=== PATIENT | female | born 1955 | race Caucasian/White ===

== ENCOUNTER → 2017-03-19 | Outpatient (CLI) | payer MEDICARE ==
[~2017-03-19] MED LIST: ALBU8.5H2 IH; ASPI-266 PO; CARV3.12T PO; CARVEDILOL PO; CLON0.5T60 PO; COMPOUND CREAM TOP; COZAAR PO; DICLOFENAC PO; ESOM20SU PO; FISH OIL PO; FLUO10CA19 PO; FOLI1TAB7 PO; INSU100V SQ; INSU100V5 SQ; KLONOPIN PO; LIRA0.6P SQ; LOSA100T16 PO; LOVA40TA2 PO; LOVASTATIN PO; METF-380 PO; METF1000 PO; OMEG-12 PO; SPIRONOLACTONE PO; SPRN25T PO; [UNRECOGNIZED DRUG - OTHER] PO
--- NOTE | 2017-03-19 17:13 | Diagnostic Imaging Report ---
PROCEDURE: MRI left joint lower extremity without contrast. TECHNIQUE: Multiplanar, multisequence non contrast-enhanced MRI of the left lower extremity was accomplished. INDICATION: Left knee pain. FINDINGS: There is [id number] joint effusion. The extensor mechanism demonstrates mild tendinosis at the origin of the patellar tendon with no significant tear. The ACL fibers are not identified compatible with full-thickness tear. This is presumably chronic based on the absence of typical associated bone marrow contusion with acute ACL tears. The PCL is thickened with increased signal compatible with old injury. Some intact fibers appear to be present, however. There is a complex tear involving the posterior horn and body of the medial meniscus. The anterior horn appears intact. The lateral meniscus demonstrates increased signal in its posterior root, compatible with degeneration or nondisplaced tear. The rest of the lateral meniscus appear unremarkable. The lateral collateral ligament components and the MCL appear intact without significant tear. The MCL however is buckled by prominent osteophytes. There is also extrusion of the body of the medial meniscus. There is severe thinning of the cartilage in the medial compartment. The cartilage in the lateral compartment is spared with only minimal fissuring seen. The patellofemoral compartment demonstrates around 75% cartilage thinning. There is subchondral edema seen near the tibial spine and the medial aspect of the medial tibial plateau, probably degenerative. There is no Cedeno's cyst. The muscle bulk and signal around the knee is satisfactory. IMPRESSION: 1. Chronic ACL full-thickness tear. 2. Old partial tear of the PCL. 3. Complex tear of the posterior horn and body of the medial meniscus. 4. Degeneration or nondisplaced tear in the posterior root of the lateral meniscus. 5. Osteoarthritis changes severe in the medial compartment and moderate in the patellofemoral compartments. Dictated by: Dictated on workstation # [id number]
== END ==
LOC: RAD 15:44
PROVIDERS: ATTEND Nurse Practitioner Community Health
DX: S83.512A Sprain of anterior cruciate ligament of left knee, initial encounter (principal); S83.282A Other tear of lateral meniscus, current injury, left knee, initial encounter; M17.12 Unilateral primary osteoarthritis, left knee; X58.XXXA Exposure to other specified factors, initial encounter
CPT/HCPCS: 73721

== ENCOUNTER 2018-05-06 11:36 | Outpatient (CLI) | payer MEDICARE ==
[~2018-05-06] VITALS: Ht 152.4 cm; Wt 103.4 kg
[2018-05-06 11:50] VITALS: BP 163/87
[2018-05-06 12:27] LABS: BASOPHILS % (AUTO) 0 % (0-10); EOSINOPHILS # (AUTO) 0.1 10^3/uL (0.0-0.3); EOSINOPHILS % (AUTO) 2 % (0-10); HEMATOCRIT 35 % (35-52); HEMOGLOBIN 12.1 G/DL (11.5-16.0); LYMPHOCYTES # (AUTO) 3.2 X 10^3 (1.0-4.0); LYMPHOCYTES % (AUTO) 40 % (12-44); MEAN CORPUSCULAR HEMOGLOBIN 30 PG (25-34); MEAN CORPUSCULAR HGB CONC 35 G/DL (32-36); MEAN CORPUSCULAR VOLUME 88 FL (80-99); MEAN PLATELET VOLUME 11.5 FL (7.4-10.4); MONOCYTES # (AUTO) 0.4 X 10^3 (0.0-1.0); MONOCYTES % (AUTO) 5 % (0-12); NEUTROPHILS # (AUTO) 4.3 X 10^3 (1.8-7.8); NEUTROPHILS % (AUTO) 53 % (42-75); PLATELET COUNT 251 10^3/uL (130-400); RED BLOOD COUNT 3.98 10^6/uL (4.35-5.85); RED CELL DISTRIBUTION WIDTH 13.4 % (10.0-14.5); WHITE BLOOD COUNT 8.1 10^3/uL (4.3-11.0)
[2018-05-06 12:41] LABS: INR 1.1 (0.8-1.4)
[2018-05-06 12:44] LABS: ALBUMIN 4.1 GM/DL (3.2-4.5); BILIRUBIN,TOTAL 0.5 MG/DL (0.1-1.0); CALCIUM 9.7 MG/DL (8.5-10.1); CREATININE SERUM 1.03 MG/DL (0.60-1.30); POTASSIUM 4.4 MMOL/L (3.6-5.0); TOTAL PROTEIN 7.6 GM/DL (6.4-8.2)
[2018-05-06 12:46] LABS: BILIRUBIN,URINE NEGATIVE (NEGATIVE); CLARITY,URINE SLIGHTLY CLOUDY; COLOR,URINE AMBER; GLUCOSE, URINE (UA) 3+ (NEGATIVE); KETONES,URINE NEGATIVE (NEGATIVE); LEUKOCYTE ESTERASE ,URINE 3+ (NEGATIVE); NITRITE,URINE POSITIVE (NEGATIVE); PH,URINE 5 (5-9); PROTEIN,URINE 1+ (NEGATIVE); UROBILINOGEN,URINE NORMAL (NORMAL)
[2018-05-06 13:00] LABS: BACTERIA,URINE LARGE /HPF; RENAL EPITHELIAL CELLS,URINE 0-2 /HPF; WBC,URINE 50-100 /HPF
[2018-05-06 13:02] LABS: ERYTHROCYTE SEDIMENTATION RATE 52 MM/HR (0-30)
[2018-05-06] MEDS ORDERED: CARV12.53 PO (14:08)
[2018-05-06] MEDS ORDERED: DICL50TA6 PO (14:08)
[2018-05-06] MEDS ORDERED: SPIR25TA PO (14:08)
[2018-05-06] MEDS ORDERED: FLUO20CA42 PO (14:08)
[2018-05-06] MEDS ORDERED: CLON0.5T13 PO (14:08)
[2018-05-06] MEDS ORDERED: METF10002 PO (14:08)
[2018-05-06] MEDS ORDERED: ROSU20TA31 PO (14:08)
[2018-05-06] MEDS ORDERED: EXEN2VIA SQ (14:08)
[2018-05-06] MEDS ORDERED: RT-ALBUINH IH (14:45)
[2018-05-06] MEDS ORDERED: ESOM20CA58 PO (14:45)
[2018-05-06] MEDS ORDERED: TRAZ-189 PO (14:45)
[2018-05-06] MEDS ORDERED: POTA99TA21 PO (14:45)
[2018-05-06] MEDS ORDERED: OMG1KC PO (14:45)
[2018-05-06] MEDS ORDERED: PREG75CA PO (14:45)
[2018-05-06] MEDS ORDERED: INSU100I23 SQ (14:45)
[2018-05-06] MEDS ORDERED: MULT-35 PO (14:45)
[2018-05-06] MEDS ORDERED: ASPI-983 PO (14:45)
[2018-05-06] MEDS ORDERED: INSU100I29 SQ ×2 (14:45)
--- NOTE | 2018-05-06 16:21 | Diagnostic Imaging Report ---
Indication: Preop left knee surgery PA and lateral chest Heart size and pulmonary vascularity are normal. The lungs are clear. There are no effusions or pneumothoraces. Impression: No acute abnormalities are seen in the chest. Dictated by: Dictated on workstation # [id number]
== END 2018-05-06 12:40 | disposition home or self-care (01) ==
LOC: PREOP 11:36
PROVIDERS: ATTEND Orthopaedic Surgery
DX: Z01.810 Encounter for preprocedural cardiovascular examination (principal); Z01.811 Encounter for preprocedural respiratory examination; Z01.812 Encounter for preprocedural laboratory examination; Z11.2 Encounter for screening for other bacterial diseases; M17.12 Unilateral primary osteoarthritis, left knee; R82.99 Other abnormal findings in urine; R53.83 Other fatigue
CPT/HCPCS: 36415; 71046; 80053; 81000; 85025; 85610; 85652; 86850; 86900; 86901; 87077; 87081; 87088; 87186; 93005

== ENCOUNTER 2018-05-12 07:24 | Inpatient (IN) | payer MEDICARE ==
--- NOTE | 2018-05-03 11:45 | HISTORY AND PHYSICAL ---
DATE OF SERVICE: ADMISSION HISTORY AND PHYSICAL This would be for his date of service 05/12/2018 for inpatient patient admission for left total hip arthroplasty. HISTORY OF PRESENT ILLNESS: The patient is a 63-year-old female with complaints of progressively worsening left knee pain with activity limitations. She reports pain with kneeling and squatting. She has undergone treatment with injections, weight loss and activity modifications without relief. She reports marked functional impairment because of her knee. Radiographs reveal severe medial patellofemoral arthrosis and due to functional impairment and failure to improve with conservative measures, the patient has elected to proceed with surgical intervention. REVIEW OF SYSTEMS: No chest pain, no shortness of breath and no dysuria. PAST MEDICAL HISTORY: Arthritis, depression, diabetes mellitus, hypertension, ulcers, irritable bowel syndrome, insomnia and hyperlipidemia. PAST SURGICAL HISTORY: Tonsillectomy, ulcers and herniorrhaphy. FAMILY HISTORY: Ischemic heart disease and cancer. Her primary care provider is [facility]. MEDICATIONS: Bydureon, spironolactone, Klonopin, carvedilol, insulin, Lyrica, fluoxetine, metformin, aspirin, Nexium, trazodone, rosuvastatin and diclofenac. ALLERGIES: NEURONTIN. SOCIAL HISTORY: The patient denies alcohol and tobacco use. PHYSICAL EXAMINATION: GENERAL: The patient is well developed, well nourished, no acute distress. HEENT: Normocephalic and atraumatic. Pupils are equal, round and reactive to light. Oropharynx is clear. NECK: Supple and no lymphadenopathy. LUNGS: Clear to auscultation bilaterally. HEART: Regular rate and rhythm. ABDOMEN: Soft, nontender and nondistended. EXTREMITIES: Left knee demonstrates no skin lesions. Sensation is intact throughout. MUSCULOSKELETAL: Range of motion 0/2/125. No varus valgus laxity. Negative anterior and posterior drawer. Patella tracks well. She has marked patellofemoral crepitus, pain with patellar loading. She is tender along the medial joint line with pain medially with Massiel. She ambulates with an antalgic gait and needs assistance to arise from a seated position. IMPRESSION: Left knee severe osteoarthritis unresponsive to conservative measures. PLAN: Left total knee arthroplasty. The risks, benefits, options, ramifications and recovery have been discussed at length with the patient. She understands and wishes to proceed. She will require inpatient admission for pain management issues and mobility issues and comorbidities. Job ID: [id number] DocumentID: [id number] Dictated Date: 05/03/2018 11:22:42 Community Outreach Advocate Date: 05/03/2018 11:44:40 Dictated By: JACQUELINE PALACIO MD
[~2018-05-12] VITALS: Ht 152.4 cm; Wt 103.4 kg
[~2018-05-12 07:24] MED LIST changes: +ASPI-983 PO; +CARV12.53 PO; +CLON0.5T13 PO; +DICL50TA6 PO; +ESOM20CA58 PO; +EXEN2VIA SQ; +FLUO20CA42 PO; +INSU100I23 SQ; +INSU100I29 SQ; +METF10002 PO; +MULT-35 PO; +OMG1KC PO; +POTA99TA21 PO; +PREG75CA PO; +ROSU20TA31 PO; +RT-ALBUINH IH; +SPIR25TA PO; +TRAZ-189 PO
[2018-05-12] MEDS ORDERED: CEFUROXIME INJECTION 1,500 MG in NS (IVPB) 50 ML IV ONE (07:45)
[2018-05-12] MEDS: LACTATED RINGERS 1,000 ML IV PRN ×2 (08:00→10:10)
[2018-05-12] MEDS ORDERED: proPOfol 200 MG/20 ML (DIPRIVAN) VIAL IV ONE (08:45)
[2018-05-12] MEDS ORDERED: ONDANSETRON 4 MG/2 ML (SDV) Z0FRAN ONE ×2 (08:45→11:18)
[2018-05-12] MEDS ORDERED: ROPIVACAINE 5MG/ML 30ML VIAL ONE (08:45)
[2018-05-12] MEDS ORDERED: LIDOCAINE PF 2% 5 ML (XYLOCAINE) VIAL ONE ×2 (08:45→09:01)
[2018-05-12] MEDS ORDERED: SEVOFLURANE (ULTANE) 15 ML INHAL SOLN ONE ×6 (08:45→10:54)
[2018-05-12] MEDS ORDERED: MIDAZOLAM 2 MG/2 ML (VERSED) VIAL ONE (08:45)
[2018-05-12] MEDS ORDERED: ROCURONIUM 10 MG/ML 5 ML SYRINGE IV ONE (08:45)
[2018-05-12] MEDS ORDERED: fentaNYL INJECTION 100 MCG/2 ML AMP ONE ×2 (08:46→09:59)
--- NOTE | 2018-05-12 09:24 | Progress Note-Pre Operative ---
Pre-Operative Progress Note H&P Reviewed The H&P was reviewed, patient examined and no changes noted. Date Seen by Provider: May 12, 2018 Time Seen by Provider: : Date H&P Reviewed: May 12, 2018 Time H&P Reviewed: :23 Pre-Operative Diagnosis: left knee primary osteoarthritis JACQUELINE PALACIO MD May 12, 2018 09:23
--- NOTE | 2018-05-12 09:26 | Progress Note-Post Operative ---
Post-Operative Progess Note Surgeon (s)/Mid Level Game Designer (s) Surgeon JACQUELINE PALACIO MD Mid Level Game Designer: Isidro Stanley Pre-Operative Diagnosis left knee primary osteoarthritis Post-Operative Diagnosis left knee primary osteoarthritis Procedure & Operative Findings Date of Procedure 05/12/18 Procedure Performed/Findings left total knee arthroplasty Anesthesia Type GETA plus regional Estimated Blood Loss Estimated blood loss (mL): minimal Specimens/Packing Specimens Removed none Packing: none JACQUELINE PALACIO MD May 12, 2018 09:25
[2018-05-12] MEDS ORDERED: ACETAMINOPHEN 325 MG TABLET PO PRN (09:30)
[2018-05-12] MEDS ORDERED: ONDANSETRON 4 MG/2 ML (SDV) Z0FRAN IVP PRN ×2 (09:30→11:15)
[2018-05-12] MEDS ORDERED: OXYC-197 PO (09:30)
[2018-05-12] MEDS ORDERED: diphenhydrAMINE 50 MG/ML INJ (BENADRYL) IVP PRN (09:30)
--- NOTE | 2018-05-12 09:32 | D/C HH Face to Face Order ---
D/C Face to Face Orders Instructions for Patient Patient Instructions/FollowUp: three weeks Physician to follow Patient: three weeks Discharge Diet for Home: ADA Diet Patient Data-Allergies,Ht & Wt Patient Allergies: Coded Allergies: sulfamethoxazole (Unverified Allergy, Mild, NAUSEA, 05/12/18) N/V AND HALLUCINATIONS trimethoprim (Unverified Allergy, Mild, NAUSEA, 05/12/18) N/V AND HALLUCINATIONS adhesive tape (Verified Allergy, Unknown, HIVES, 05/06/18) gabapentin (Verified Allergy, Unknown, NAUSEA, 05/06/18) Height (Feet): 5 Height (Inches): 0.00 Weight (Pounds): 228 Weight (Ounces): 0.0 Home Health Need/Face to Face Date of Face to Face: May 12, 2018 Clinical Findings: Muscle weakness, Pain with ambulation, Unsteady gait I have seen Pt [id number]: Yes Discharged To: Home Diagnosis/Conditions: left total knee arthroplasty Patient is Homebound due to: Drake fall risk due to instabilty, Muscle weakness , Pain w/ambulation Homebound Status Due to the above stated illness, injury or surgical procedure (medical condition or diagnosis) and associated clinical findings, the patient is homebound because of his/her inability to leave home except with aid of a supportive device and/or person AND leaving the home requires a considerable and taxing effort or is medically contraindicated. Pt req the following assistanc: Walker Home Health Nursing Orders Home Health Services Order: Physical Therapy-Evaluate & Treat Home Health Infusion Therapy Line Start Date: May 12, 2018 Line Start Time: 0800 Line Type: Peripheral IV Site Location: Forearm Therapy Orders Therapy Orders: Physical Therapy, PT to assess for OT Therapy Specific Orders: Eval assistive deivces, Teach strategies/cognitive deficits, Gait training, Increase strength/endurance, Provider maintenance therapy, Restore ROM Certify Stmt I certify that this patient is under my care and that I, a nurse practitioner or a physician; a congressional assistant working with me, had a face to face encounter that - meets the physician face to face encounter requirements with this patient as dated. JACQUELINE PALACIO MD May 12, 2018 09:32
[2018-05-12] MEDS ORDERED: LABETALOL HCL 20 MG/4 ML VIAL ONE ×2 (10:06)
[2018-05-12] MEDS ORDERED: morphine INJ 10 MG/ML 1ML (SYR OR VIAL) ONE (10:58)
[2018-05-12] MEDS: morphine INJ 10 MG/ML 1ML (SYR OR VIAL) IVP PRN ×2 (11:12→11:25)
[2018-05-12] MEDS ORDERED: HYDROmorphone 1 MG/ML (DILAUDID) 1 ML SYRINGE ONE (11:33)
[2018-05-12] MEDS: HYDROmorphone 1 MG/ML (DILAUDID) 1 ML SYRINGE IV PRN ×2 (11:35→11:45)
--- NOTE | 2018-05-12 11:35 | Progress Note-Standard ---
Standard Progress Note Progress Notes/Assess & Plan Date Seen by Provider: May 12, 2018 Time Seen by Provider: 11:34 Progress/Assessment & Plan no complaints LLE--2 plus DP pulse with brisk cap refill. Intact sensation throughout. Intact DF and PF of toes and ankle s/p LTKA mobilize as able JACQUELINE PALACIO MD May 12, 2018 11:35
[2018-05-12 12:57] VITALS: BP 146/65
--- NOTE | 2018-05-12 13:02 | Diagnostic Imaging Report ---
Left knee at 12:04 p.m. INDICATION: Postop. AP and lateral views of the left knee were received from the OR. There are no prior plain film examinations available for comparison. FINDINGS: The MRI left knee exam of 03/19/17 did note severe osteoarthritis involving the medial compartment of the knee joint. There is a total knee prosthesis in place. The prosthetic components appear to be in good position. There is no fracture or acute bony abnormality noted. There is a prominent air-fluid level in the suprapatellar region. Skin jordan are evident overlying the anterior aspect of the knee joint. IMPRESSION: There are postoperative changes consistent with a recent total knee arthroplasty. The prosthetic components appear to be in good position and there is no sign of an acute bony abnormality. Dictated by: Dictated on workstation # [id number]
[2018-05-12] MEDS: NS IV 1000 ML 1,000 ML IV SCH ×2 (13:13→21:56)
[2018-05-12] MEDS: oxyCODONE/APAP 5/325MG (PERCOCET 5) TABLET PO PRN ×2 (13:13→23:59)
[2018-05-12] MEDS: morphine PCA 30 MG/30 ML VIAL IV PRN (13:29)
--- NOTE | 2018-05-12 15:08 | Physical Therapy Evaluation ---
PT Evaluation-General Medical Diagnosis Admission Date May 12, 2018 at 07:24 Medical Diagnosis: left knee OA Onset Date: May 12, 2018 Therapy Diagnosis Therapy Diagnosis: weakness; abn gait Height/Weight Height (Feet): 5 Height (Inches): 0.00 Weight (Pounds): 228 Weight (Ounces): 0.0 Precautions Precautions/Isolations: Fall Prevention, Standard Precautions Weight Bear Status Right Lower Extremity: Right Full Weight Bearing Left Lower Extremity: Left Referral Physician: Jessika Reason for Referral: Evaluation/Treatment Medical History Pertinent Medical History: Arthritis, DM, HTN Additional Medical History depression, IBS Current History Admitted for elective left TKR post failed conservative treatment. Reviewed History: Yes Social History Home: Single Level (trailer home) Current Living Status: Spouse Entry Into Home: Stairs With Railing PT Steps Into Home: 4 PT Steps Inside Home: 0 Prior/Core FIM Prior Level of Function Functional [place] Measure 0=Not Assessed/NA 4=Minimal Assistance 1=Total Assistance 5=Supervision or Setup 2=Maximal Assistance 6=Modified [place] 3=Moderate Assistance 7=Complete [place] Bed Mobility: 7 Transfers (B,C,W/C) (FIM): 7 Gait: 7 Community ambulator and still drives. 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 PT Evaluation-Current Subjective Agreeable to PT. "I want to walk and do the best that I can." Pain Numeric Pain Scale: 4 Location: Left Location Body Site: Knee Pain Description: Ache Comment: post surgery pain Objective Patient Orientation: Person, Place, Time, Situation Problem Solving: Good Attachments: Oxygen (in situ post treatment), IV ROM/Strength ROM Lower Extremities Right LE WNL; left LE WFL; left knee 0-75 degrees AAROM Strength Lower Extremities Right LE WNL; Left LE grossly 4-/5 Integumentary/Posture Integumentary refer to nursing notes. Bowel Incontinence: No Bladder Incontinence: No Posture normal and symmetrical Neuromuscular (Tone, Coordination, Reflexes) no noted functional deficits Sensory Vision: Functional Hearing: Functional Hand Dominance: Right Sensation Right Lower Extremit: Intact Sensation Left Lower Extremity: Intact Transfers Functional [place] Measure 0=Not Assessed/NA 4=Minimal Assistance 1=Total Assistance 5=Supervision or Setup 2=Maximal Assistance 6=Modified [place] 3=Moderate Assistance 7=Complete [place] Transfers (B, C, W/C) (FIM): 4 Scootin Rollin Supine to/from Sit: 4 (assist wth left LE) Sit to/from Stand: 4 (cGA with cues for sequencing) CGA with toilet transfers as well. Gait Mode of Locomotion: Walk Anticipated Mode of Locomotion: Walk Gait (FIM): 2 Distance: 125 ft Gait Level of Assist: 4 (CGA for safety) Gait Assistive Device: FWW Comments/Gait Description step to gait with the right LE; slow and slightly antalgic, decreased stride length. Pt also walked in and out of the bathroom with FWW. Balance Sitting Static: Good Sitting Dynamic: Good Standing Static: Good Standing Dynamic: Fair Treatment Gait training; toileted; applied CPM 0-56 degrees. Assessment/Needs Post elective left TKR. She has decreasd functional transfers and gait as a result of knee surgery with limited ROM and functional strength. She will benefit from skilled PT to work on mobility to allow her to return home. Rehab Potential: Good PT Retirement Goals Maritime Engineer Goals PT Retirement Goals Time Frame: May 17, 2018 Transfers (B,C,W/C) (FIM): 6 Gait (FIM): 6 Gait distance (FIM): 3=150 ft Gait Assistive Device: FWW Stairs (FIM): 5 # of Steps: 4 PT Plan Problem List Problem List: Activity Tolerance, Functional Strength, Safety, Balance, Gait, Transfer, Bed Mobility Treatment/Plan Treatment Plan: Continue Plan of Care Treatment Plan: Bed Mobility, Education, Functional Activity Clark, Functional Strength, Gait, Safety, Therapeutic Exercise, Transfers Treatment Duration: May 17, 2018 Frequency: 11 times per week Estimated Hrs Per Day: .5 hour per day Patient and/or Family Agrees t: Yes Safety Risks/Education Patient Education: Gait Training, Transfer Techniques, Safety Issues Teaching Recipient: Patient Teaching Methods: Demonstration, Discussion Response to Teaching: Reinforcement Needed Time/GCodes Time In: 1345 Time Out: 1420 Total Billed Treatment Time: 35 Total Billed Treatment visit EVM 20 GT 15 CPM, pads BRANDON ROCHA PT May 12, 2018 15:08
--- NOTE | 2018-05-12 15:50 | OPERATIVE REPORT ---
DATE OF SERVICE: 05/12/2018 PREOPERATIVE DIAGNOSIS: Left knee primary osteoarthritis. POSTOPERATIVE DIAGNOSIS: Left knee primary osteoarthritis. PROCEDURE: Left total knee arthroplasty. SURGEON: Raul Palacio MD LIFE SKILLS COORDINATOR: MAIKOL Valentino, who assisted throughout the procedure and closed the incision. ANESTHESIA: General endotracheal plus regional nerve block by Brandi Ugarte CRNA. TOURNIQUET TIME: Approximately 60 minutes at 300 mmHg. ESTIMATED BLOOD LOSS: Minimal. DRAINS: None. COMPLICATIONS: None. POSTOPERATIVE PLAN: Routine protocol. The patient was transported to the recovery room awake and in stable condition. MATERIALS: MicroPort cemented size 3 femur, cemented size 3 tibia with 10 mm insert and a cemented size 32 patellar button. STATEMENT OF MEDICAL NECESSITY: The patient is a 63-year-old female with longstanding progressive left knee pain. Radiographs revealed severe medial and patellofemoral osteoarthritis. She had undergone treatment with injections, anti-inflammatories and rest without relief and due to functional impairment and failure to improve with conservative measures, the patient elected to proceed with surgical intervention. DESCRIPTION OF PROCEDURE: After risks and benefits of procedure were discussed and questions were answered and informed consent was signed and placed on the chart. The operative site was confirmed in the preoperative holding area initialed by the surgeon. The patient was then transported to the operating room and after adequate levels of general endotracheal anesthetic were obtained, a timeout was called confirming the operative site. The left lower extremity was prepped and draped in the usual sterile fashion with the leg elevated and the knee flexed. The tourniquet was inflated to 300 mmHg. Standard anterior approach was utilized. Hemostasis was obtained with cautery. A medial parapatellar arthrotomy was performed leaving 1 cm cuff on the patella for later reattachment. A portion of the fat pad was resected. A subperiosteal release was performed on the proximal medial tibia with curved osteotome being careful to stay on the bony surface. The ACL was resected. The intramedullary guide was passed into the femur and the distal cutting block was placed. The distal cut was made. The femur sized to a size 3. The 3 cutting block was placed parallel to the epicondylar axis and cuts were made from posterior to anterior. The trochlear guide was placed and the trochlear cut was made. A subperiosteal release was then carefully performed on the posterior distal femur, being careful to stay on the bony surface. The intramedullary guide was then passed into the tibia. The drop maureen transected the intermalleolar axis and the cut was made. The size 3 baseplate was positioned and felt to be in excellent position with the drop maureen transecting the intermalleolar axis. This was prepared with a drill and keel punch. The patella was then prepared by resecting 10 mm off the undersurface using the freehand technique. The peg guide was placed and the peg holes were drilled. The trials were inserted with a 10 mm insert. Full extension was easily obtained, 120 degrees of flexion with gravity was easily obtained. The patella tracked well. There was no anterior/posterior or medial/lateral laxity in flexion or extension. The trials were removed. The joint was irrigated with pulse lavage. Bone ends were irrigated and dried. The tibial baseplate was cemented into position and excess of cement was removed. The superior surface was irrigated and dried and the polyethylene insert was placed. The distal femur was irrigated and dried and the femoral prosthesis was cemented into position and excess cement was removed. The knee was brought out in full extension until cement had cured. The undersurface of patella was irrigated and dried. The patellar button was cemented into position removing excess of cement. Once the cement had cured, the knee was taken through full range of motion with full extension was easily obtained and 120 degrees of flexion with gravity was easily obtained. There was no anterior/posterior or medial/lateral laxity in flexion or extension and the patella tracked well. The joint was further irrigated with pulse lavage. The arthrotomy was closed with #2 Tevdek in [id number] interrupted fashion. The knee was flexed. The patella tracked well and was found to be stable. Subcutaneous tissues were irrigated and dried and closed with 0 Vicryl in the deep layer, 2-0 Vicryl in superficial subcutaneous layers, jordan used on the skin. A soft dressing was applied. The tourniquet was deflated and the patient was transported to the recovery room awake and in stable condition. Job ID: [id number] DocumentID: [id number] Dictated Date: 05/12/2018 11:08:28 Miniature Set Designer Date: 05/12/2018 15:49:34 Dictated By: RAUL PALACIO MD
[2018-05-12 16:00] VITALS: BP 108/69
[2018-05-12] MEDS: CEFUROXIME INJECTION 750 MG in NS (IVPB) 50 ML IV SCH (16:22)
[2018-05-12 19:38] VITALS: BP 160/78
[2018-05-12] MEDS: SENNA W/DOCUSATE (SENOKOT S) TABLET PO SCH (20:41)
[2018-05-12] MEDS: ENOXAPARIN 30 MG/0.3 ML (LOVENOX) SYR SC SCH (21:14)
[2018-05-12] MEDS: inSUlin ASPART (NovoLOG) 1 UNIT/0.01 ML (CHARGE PER UNIT) SC SCH (21:47)
[2018-05-13] VITALS: BP 133/61
[2018-05-13] MEDS: NS IV 1000 ML 1,000 ML IV SCH ×2 (00:54→13:49)
[2018-05-13] MEDS: CEFUROXIME INJECTION 750 MG in NS (IVPB) 50 ML IV SCH (00:54)
[2018-05-13] MEDS: oxyCODONE/APAP 5/325MG (PERCOCET 5) TABLET PO PRN ×8 (04:05→21:16)
[2018-05-13 04:13] VITALS: BP 138/64
[2018-05-13 06:29] LABS: HEMOGLOBIN 9.9 G/DL (11.5-16.0)
[2018-05-13] MEDS: inSUlin ASPART (NovoLOG) 1 UNIT/0.01 ML (CHARGE PER UNIT) SC SCH ×4 (06:34→21:17)
[2018-05-13] MEDS: MULTIVIT W/MINERALS TAB (THERAGRAN M) PO SCH (06:34)
--- NOTE | 2018-05-13 07:20 | Anesthesia-General Post-Op ---
General Patient Condition Mental Status/LOC: Same as Preop Cardiovascular: Satisfactory Nausea/Vomiting: Absent Respiratory: Satisfactory Pain: Controlled Complications: Absent Post Op Complications Complications None Follow Up Care/Instructions Patient Instructions None needed. Anesthesia/Patient Condition Patient Condition Patient is doing well, no complaints, stable vital signs, no apparent adverse anesthesia problems. No complications reported per nursing. D/C home per [facility] [place] Criteria: No MONICA SANTILLAN CRNA May 13, 2018 07:20
[2018-05-13 07:48] VITALS: BP 163/77
--- NOTE | 2018-05-13 07:57 | Progress Note-Standard ---
Standard Progress Note Progress Notes/Assess & Plan Date Seen by Provider: May 13, 2018 Time Seen by Provider: 07:55 Progress/Assessment & Plan no complaints LLE--2 plus DP pulse with brisk cap refill. Intact sensation throughout. Intact DF and PF of toes and ankle s/p LTKA mobilize as able Final Diagnosis NO complaints radiographs--HW well positioned without fracture Vital Signs Date Time Temp Pulse Resp B/P (MAP) Pulse Ox O2 Delivery O2 Flow Rate FiO2 05/13/18 07:48 96.9 82 18 163/77 (105) 93 Room Air 05/13/18 06:00 20 05/13/18 04:13 98.3 80 19 138/64 (88) 93 Nasal Cannula 3.00 05/13/18 00:00 98.0 76 18 133/61 (85) 94 Nasal Cannula 3.00 05/12/18 23:50 Nasal Cannula 3.00 05/12/18 20:45 Room Air 05/12/18 19:38 97.5 71 20 160/78 (105) 100 Nasal Cannula 3.00 05/12/18 17:19 20 05/12/18 16:00 97.2 66 20 108/69 (82) 98 Nasal Cannula 3.00 05/12/18 14:34 Room Air 05/12/18 13:29 18 05/12/18 12:57 96.8 73 18 146/65 (92) 94 Nasal Cannula 3.00 05/12/18 12:20 98 Nasal Cannula 3.00 I & O 05/13/18 07:00 Intake Total 4230 ml Output Total 1150 ml Balance 3080 ml Laboratory Tests Test 05/12/18 15:51 05/12/18 21:13 05/13/18 05:11 05/13/18 06:05 Range/Units Glucometer 224 H 181 H 218 H 70-110 MG/DL Hemoglobin 9.9 L 11.5-16.0 G/DL Hematocrit 30 L 35-52 % LLE--NVI distally. Dressing intact. Neg Anita's s/p LTKA PT/OT JACQUELINE PALACIO MD May 13, 2018 07:57
[2018-05-13] MEDS: SENNA W/DOCUSATE (SENOKOT S) TABLET PO SCH ×2 (08:39→20:22)
[2018-05-13] MEDS: ASPIRIN E.C. 81 MG (ECOTRIN) TAB PO SCH (08:40)
--- NOTE | 2018-05-13 09:27 | Occupational Therapy Eval ---
OT Evaluation-General/PLF Medical Diagnosis Admission Date May 12, 2018 at 07:24 Medical Diagnosis: left knee OA Onset Date: May 12, 2018 Therapy Diagnosis Therapy Diagnosis: decr self care, decr funct mobility Height/Weight Height (Feet): 5 Height (Inches): 0.00 Weight (Pounds): 228 Weight (Ounces): 0.0 Precautions Precautions/Isolations: Standard Precautions Referral Physician: Jessika Referral Reason: Evaluation/Treatment Medical History Pertinent Medical History: Arthritis, DM, HTN, Neuropathy (patient report, in hands and feet) Additional Medical History Ulcers. Irritable bowel. Insomnia Current History Elective L total knee replacement Reviewed History: Yes Social History Home: Single Level (trailer home) Current Living Status: Spouse Entry Into Home: Stairs With Railing Steps Into Home: 4 Steps Inside Home: 0 ADL-Prior Level of Function ADL PLOF Comments Pt reported that she was previously able to manage her basic self care needs and did not use any AD. 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 She still drives and loves to work with her smith outside. DME/Equipment: Grab Bars, Shower, Tall Toilet, Tub/Shower OT Current Status Subjective Pt seen in room, up in bed, agreeable to OT. Pain rated 6/10 in L knee but not described. Recent pain meds Appearance Alert, cooperative Mental Status/Objective Patient Orientation: Person, Place, Time, Situation Attachments: IV, Polar Pack Current Glasses/Contacts: Yes Hearing Aids: No Dentures/Partials: No Hand Dominance: Right Upper Extremity ROM Grossly WFL bilat Upper Extremity Sensation Pt reported numbness in fiinger tips from neuropathy Upper Extremity Strength Grossly 4+/5 bilat ADL-Treatment ADL-Current Pt educ on modified techniques for dressing and toileting. She needed CGA yesterday for transfers and walked 125" with CGA, FWW, with PT. She reported no problems getting on and off tall toilet in her room. Functional [place] Measure 0=Not Assessed/NA 4=Minimal Assistance 1=Total Assistance 5=Supervision or Setup 2=Maximal Assistance 6=Modified [place] 3=Moderate Assistance 7=Complete IndependenceIRFPAI Quality Coding Scale 6 Independent with activity with or without an assistive device 5 Patient requires set up or clean up by helper. Patient completes activity by themselves 4 Supervision or touching assist (CGA). [place] provide cues , steadying assist 3 The helper provides less than half the effort to complete the activity 2 The helper provides more than half the effort to complete the activity 1 Dependent. The helper does all the effort to complete an activity 7 Patient refused to complete or attempt activity 9 The patient did not perform the activity before the current illness or injury 88 Not attempted due to Medical conditions or safety concerns Education OT Patient Education: Modified ADL techniques, Purpose of tx/functional activities, Rehab process Teaching Recipient: Patient, Family Teaching Methods: Discussion Response to Teaching: Verbalize Understanding OT Fci Goals Fci Goals Time Frame: May 17, 2018 Eating (FIM): 7 Grooming(FIM): 6 Bathing(FIM): 6 Upper Body Dressing(FIM): 5 Lower Body Dressing(FIM): 5 Toileting(FIM): 6 Toilet/Commode Transfer(FIM): 6 Shower Transfer(FIM): 5 Additional Goals: 1-Demonstrate ADL Tasks, 2-Verbalize Understanding 1=Demonstrate adherence to instructed precautions during ADL tasks. 2=Patient will verbalize/demonstrate understanding of assistive devices/ modifications for ADL. 3=Patient will improve strength/tolerance for activity to enable patient to perform ADL's. OT Education/Plan Problem List/Assessment Assessment: Dependent Transfers, Impaired Self-Care Skills Pt would benefit from skilled OT to increase her independence in basic self care to allow her to safely return to her home. Discharge Recommendations Plan/Recommendations: Continue POC Therapy D/C Recommendations: Home w/ Family Support Target Placement home Treatment Plan/Plan of Care Treatment,Training & Education: Yes Patient would benefit from OT for education, treatment and training to promote independence in ADL's, mobility, safety and/or upper extremity function for ADL' s. Plan of Care: ADL Retraining, Functional Mobility Treatment Duration: May 17, 2018 Frequency: 5 times per week Estimated Hrs Per Day: .5 hour per day Agreement: Yes Rehab Potential: Good Time/GCodes Start Time: 08:55 Stop Time: 09:08 Total Time Billed (hr/min): 13 Billed Treatment Time visit, 13 minutes evaluation low intensity ROSE ANNE OT May 13, 2018 09:27
--- NOTE | 2018-05-13 09:31 | Physical Therapy Daily Note ---
PT Daily Note-Current Subjective Patient agrees to PT. 08/04 left knee pain with meds issued. Pain Numeric Pain Scale: 10-Worst Possible Pain Location: Left Location Body Site: Knee Pain Description: Acute Mental Status Patient Orientation: Normal For Age Attachments: IV Transfers Functional [place] Measure 0=Not Assessed/NA 4=Minimal Assistance 1=Total Assistance 5=Supervision or Setup 2=Maximal Assistance 6=Modified [place] 3=Moderate Assistance 7=Complete IndependenceIRFPAI Quality Coding Scale 6 Independent with activity with or without an assistive device 5 Patient requires set up or clean up by helper. Patient completes activity by themselves 4 Supervision or touching assist (CGA). [place] provide cues , steadying assist 3 The helper provides less than half the effort to complete the activity 2 The helper provides more than half the effort to complete the activity 1 Dependent. The helper does all the effort to complete an activity 7 Patient refused to complete or attempt activity 9 The patient did not perform the activity before the current illness or injury 88 Not attempted due to Medical conditions or safety concerns Transfers (B, C, W/C) (FIM): 5 Scootin Rollin Supine to/from Sit: 5 Sit to/from Stand: 5 Weight Bearing Right Lower Extremity: Right Full Weight Bearing Left Lower Extremity: Left Gait Training Gait (FIM): 5 Distance (FIM): 3=150 ft Distance: 225' Gait Level of Assist: 5 Gait Assistive Device: FWW steady, antalgic Exercises Supine Ex: Ankle pumps, Quad Set, Heel Slides, Straight leg raise Supine Reps: 15 Seated Therapy Exercises: Ankle pumps, Long arc quads Seated Reps: 15 Assessment Patient tolerated treatment well and is progressing with treatment plan. Patient is highly motivated with progress. PT Group Home Goals Manager Budget Goals PT Manager Budget Goals Time Frame: May 17, 2018 Transfers (B,C,W/C) (FIM): 6 Gait (FIM): 6 Gait distance (FIM): 3=150 ft Gait Assistive Device: FWW Stairs (FIM): 5 # of Steps: 4 PT Plan Treatment/Plan Treatment Plan: Continue Plan of Care Treatment Plan: Bed Mobility, Education, Functional Activity [place], Functional Strength, Gait, Safety, Therapeutic Exercise, Transfers Treatment Duration: May 17, 2018 Frequency: 11 times per week Estimated Hrs Per Day: .5 hour per day Patient and/or Family Agrees t: Yes Time/GCodes Time In: 831 Time Out: 854 Total Billed Treatment Time: 23 Total Billed Treatment 1 visit EX 14 min GT 9 min TRINO ALFARO PT May 13, 2018 09:31
[2018-05-13 12:33] VITALS: BP 155/70
[2018-05-13] MEDS ORDERED: RT-ALBUTEROL SULF 2.5 MG/3 ML PRE-MIX VIAL IH PRN (13:15)
--- NOTE | 2018-05-13 14:33 | Physical Therapy Daily Note ---
PT Daily Note-Current Subjective Patient continues to c/o 10/ left knee pain. Pain Numeric Pain Scale: 10-Worst Possible Pain Location: Left Location Body Site: Knee Pain Description: Acute Mental Status Patient Orientation: Normal For Age Attachments: IV Transfers Functional [place] Measure 0=Not Assessed/NA 4=Minimal Assistance 1=Total Assistance 5=Supervision or Setup 2=Maximal Assistance 6=Modified [place] 3=Moderate Assistance 7=Complete IndependenceIRFPAI Quality Coding Scale 6 Independent with activity with or without an assistive device 5 Patient requires set up or clean up by helper. Patient completes activity by themselves 4 Supervision or touching assist (CGA). [place] provide cues , steadying assist 3 The helper provides less than half the effort to complete the activity 2 The helper provides more than half the effort to complete the activity 1 Dependent. The helper does all the effort to complete an activity 7 Patient refused to complete or attempt activity 9 The patient did not perform the activity before the current illness or injury 88 Not attempted due to Medical conditions or safety concerns Transfers (B, C, W/C) (FIM): 5 Scootin Rollin Supine to/from Sit: 5 Sit to/from Stand: 5 Weight Bearing Right Lower Extremity: Right Full Weight Bearing Left Lower Extremity: Left Gait Training Gait (FIM): 5 Distance (FIM): 3=150 ft Distance: 250' Gait Level of Assist: 5 Gait Assistive Device: FWW steady, antalgic Exercises Supine Ex: Ankle pumps, Quad Set, Heel Slides, Straight leg raise Supine Reps: 15 Seated Therapy Exercises: Long arc quads Seated Reps: 15 Treatments CPM 0-70 degrees with polar pack in place Assessment Patient progressing with treatment plan and is motivated with progress. PT to continue to increase activity as tolerated by patient. 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 Field Inspector Goals Mortgage Field Inspector Goals PT Care Home Goals Time Frame: May 17, 2018 Transfers (B,C,W/C) (FIM): 6 Gait (FIM): 6 Gait distance (FIM): 3=150 ft Gait Assistive Device: FWW Stairs (FIM): 5 # of Steps: 4 PT Plan Treatment/Plan Treatment Plan: Continue Plan of Care Treatment Plan: Bed Mobility, Education, Functional Activity Calrk, Functional Strength, Gait, Safety, Therapeutic Exercise, Transfers Treatment Duration: May 17, 2018 Frequency: 11 times per week Estimated Hrs Per Day: .5 hour per day Patient and/or Family Agrees t: Yes Time/GCodes Time In: 1346 Time Out: 1410 Total Billed Treatment Time: 24 Total Billed Treatment 1 visit EX 13 min GT 11 min TRINO ALFARO PT May 13, 2018 14:33
[2018-05-13 16:18] VITALS: BP 148/67
--- NOTE | 2018-05-13 17:58 | Consultation ([facility]S) ---
HPI History of Present Illness: Patient here POD #1 s/p Total Left knee. History of IDDM, HTN, HLD. Reviewed home meds with patient. States that she is having pain and the TILE DITCHER is controlling most of her pain. She has been up with PTCamille LEW this AM. Tolerating PO diet Exam Limitations: no limitations Date seen by provider: May 13, 2018 Time Seen by Provider: 11:10 Attending Physician Raul Rosen MD PCP Flynn Chery MD Consult Date of Admission May 12, 2018 at 07:24 Home Medications Home Medications Reviewed patient Home Medication Reconciliation performed by pharmacy medication reconciliations train electronic technician and/or nursing. Patients Allergies have been reviewed. Allergies Coded Allergies: sulfamethoxazole (Unverified Allergy, Mild, NAUSEA, 05/12/18) N/V AND HALLUCINATIONS trimethoprim (Unverified Allergy, Mild, NAUSEA, 05/12/18) N/V AND HALLUCINATIONS adhesive tape (Verified Allergy, Unknown, HIVES, 05/06/18) gabapentin (Verified Allergy, Unknown, NAUSEA, 05/06/18) AGH-Rerehg-[id number] Hx Patient Social History Living Status: Lives home with Alcohol Use: Denies Use Recreational Drug Use: No Smoking Status: Never a Smoker Recent Foreign Travel: No Contact w/other who traveled: No Recent Hopitalizations: No Physical Abuse Screen: No Sexual Abuse: No Immunizations Up To Date Date of Pneumonia Vaccine: Jan 05, 2016 Date of Influenza Vaccine: Jun 26, 2014 Past Medical History IDDM HTN HLD 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 Family Medical History Family History: Cardiovascular disease 19 FATHER, FH: prostate cancer G8 BROTHER Respiratory disorder G8 BROTHER Review of Systems ([facility]) Constitutional: No chills, No dizziness, No fever; weakness EENTM: no symptoms reported Respiratory: no symptoms reported; No cough, No dyspnea on exertion, No short of breath Cardiovascular: no symptoms reported; No chest pain, No edema, No palpitations Gastrointestinal: no symptoms reported; No abdominal pain, No constipation, No diarrhea, No nausea, No vomiting Genitourinary: no symptoms reported; No dysuria, No frequency, No hematuria : No Musculoskeletal: joint pain (Left total knee) Skin: no symptoms reported; No lesions, No rash Psychiatric/Neurological: No Symptoms Reported; Denies Anxiety, Denies Depressed, Denies Headache, Denies Numbness Reviewed Test Results Reviewed Test Results Lab Laboratory Tests Test 05/12/18 21:13 05/13/18 05:11 05/13/18 06:05 05/13/18 10:51 Range/Units Glucometer 181 H 218 H 287 H 70-110 MG/DL Hemoglobin 9.9 L 11.5-16.0 G/DL Hematocrit 30 L 35-52 % Test 05/13/18 16:22 Range/Units Glucometer 275 H 70-110 MG/DL Physical Exam-([facility]) Physical Exam Vital Signs VS - Last 72 Hours, by Label 05/12/18 05/12/18 05/12/18 05/12/18 12:20 12:57 13:29 14:34 Temp 96.8 Pulse 73 Resp 18 18 B/P (MAP) 146/65 (92) Pulse Ox 98 94 O2 Delivery Nasal Cannula Nasal Cannula Room Air O2 Flow Rate 3.00 3.00 05/12/18 05/12/18 05/12/18 05/12/18 16:00 17:19 19:38 20:45 Temp 97.2 97.5 Pulse 66 71 Resp 20 20 20 B/P (MAP) 108/69 (82) 160/78 (105) Pulse Ox 98 100 O2 Delivery Nasal Cannula Nasal Cannula Room Air O2 Flow Rate 3.00 3.00 05/12/18 05/13/18 05/13/18 05/13/18 23:50 00:00 04:13 06:00 Temp 98.0 98.3 Pulse 76 80 Resp 18 19 20 B/P (MAP) 133/61 (85) 138/64 (88) Pulse Ox 94 93 O2 Delivery Nasal Cannula Nasal Cannula Nasal Cannula O2 Flow Rate 3.00 3.00 3.00 05/13/18 05/13/18 05/13/18 05/13/18 07:48 08:00 12:33 16:18 Temp 96.9 96.3 96.6 Pulse 82 80 80 Resp 18 18 18 B/P (MAP) 163/77 (105) 155/70 (98) 148/67 (94) Pulse Ox 93 91 96 O2 Delivery Room Air Room Air Room Air Room Air Capillary Refill : Less Than 3 Seconds General Appearance: WD/WN, no apparent distress HEENT: PERRL/EOMI Neck: non-tender, full range of motion, normal inspection Respiratory: chest non-tender, lungs clear, normal breath sounds, no respiratory distress, no accessory muscle use Cardiovascular: normal peripheral pulses, regular rate, rhythm, no edema, no murmur Gastrointestinal: normal bowel sounds, non tender, soft, no organomegaly Back: no CVA tenderness, no vertebral tenderness Extremities: normal range of motion, non-tender, normal inspection, no pedal edema, no calf tenderness, normal capillary refill Neurologic/Psychiatric: audiometric technician II-XII nml as tested, no motor/sensory deficits, alert, normal mood/affect, oriented x 3 Skin: normal color, warm/dry Lymphatic: no adenopathy Assessment/Plan Assessment/Plan Admission Status: Inpatient Order (span 2 midnights) Reason for Inpatient Admission: s/p surgery (1) Osteoarthritis of left knee Status: Chronic Assessment & Plan: POD #1 s/p Left total knee with Dr Carroll - Pain control per surgical team, Plan for home on Thursday with Qualifiers: Qualified Codes: M17.12 - Unilateral primary osteoarthritis, left knee (2) Insulin dependent diabetes mellitus Status: Chronic Assessment & Plan: - Will restart 60% of insulin, SSI with accuchecks QID, A1c pending (3) HTN (hypertension) Status: Chronic Assessment & Plan: - Restart home meds Qualifiers: Qualified Codes: I10 - Essential (primary) hypertension (4) HLD (hyperlipidemia) Status: Chronic Assessment & Plan: - Restart home statin Qualifiers: Qualified Codes: E78.2 - Mixed hyperlipidemia Clinical Quality Measures DVT/VTE Risk/Contraindication: Risk Factor Score Per Nursin RFS Level Per Nursing on Admit: 4+=Very High Copy Copies To 1: Nidia MOREL HOLLY R MD May 13, 2018 17:58
[2018-05-13 19:34] VITALS: BP 144/69
[2018-05-13] MEDS: SPIRONOLACTONE 25 MG (ALDACTONE) TAB PO SCH (20:21)
[2018-05-13] MEDS: ROSUVASTATIN 20 MG (CRESTOR) TABLET PO SCH (20:21)
[2018-05-13] MEDS: ENOXAPARIN 30 MG/0.3 ML (LOVENOX) SYR SC SCH (20:21)
[2018-05-13] MEDS: CARVEDILOL 12.5 MG (COREG) TABLET PO SCH (20:21)
[2018-05-13] MEDS ORDERED: inSUlin DETERMIR 1 UNIT/0.01 ML (LEVEMIR) CHARGE PER UNIT SQ SCH (21:00)
[2018-05-14] MEDS: morphine PCA 30 MG/30 ML VIAL IV PRN (00:04)
[2018-05-14 00:57] VITALS: BP 135/63
[2018-05-14] MEDS: NS IV 1000 ML 1,000 ML IV SCH (02:18)
[2018-05-14] MEDS: oxyCODONE/APAP 5/325MG (PERCOCET 5) TABLET PO PRN ×7 (02:20→23:57)
[2018-05-14 04:13] VITALS: BP 127/60
[2018-05-14] MEDS: inSUlin ASPART (NovoLOG) 1 UNIT/0.01 ML (CHARGE PER UNIT) SC SCH ×4 (06:16→22:58)
[2018-05-14] MEDS: MULTIVIT W/MINERALS TAB (THERAGRAN M) PO SCH (06:16)
[2018-05-14] MEDS: PANTOPRAZOLE 20 MG TABLET (PROTONIX) PO SCH (06:16)
[2018-05-14 06:45] LABS: HEMOGLOBIN 9.8 G/DL (11.5-16.0)
--- NOTE | 2018-05-14 07:06 | Progress Note-Standard ---
Standard Progress Note Progress Notes/Assess & Plan Date Seen by Provider: May 14, 2018 Time Seen by Provider: 07:05 Progress/Assessment & Plan no complaints LLE--2 plus DP pulse with brisk cap refill. Intact sensation throughout. Intact DF and PF of toes and ankle s/p LTKA mobilize as able Final Diagnosis NO complaints Vital Signs Date Time Temp Pulse Resp B/P (MAP) Pulse Ox O2 Delivery O2 Flow Rate FiO2 05/14/18 06:00 18 05/14/18 04:13 97.5 83 19 127/60 (82) 94 Room Air 05/14/18 00:57 98.2 76 19 135/63 (87) 95 Room Air 05/14/18 00:04 18 05/13/18 20:20 Room Air 05/13/18 19:34 99.0 79 18 144/69 (94) 92 Room Air 05/13/18 18:51 96 Room Air 05/13/18 18:00 18 05/13/18 16:18 96.6 80 18 148/67 (94) 96 Room Air 05/13/18 12:33 96.3 80 18 155/70 (98) 91 Room Air 05/13/18 08:00 Room Air 05/13/18 07:48 96.9 82 18 163/77 (105) 93 Room Air I & O 05/14/18 07:00 Intake Total 4220 ml Output Total 1050 ml Balance 3170 ml Laboratory Tests Test 05/13/18 10:51 05/13/18 16:22 05/13/18 20:53 05/14/18 05:31 Range/Units Glucometer 287 H 275 H 291 H 251 H 70-110 MG/DL Test 05/14/18 06:01 Range/Units Hemoglobin 9.8 L 11.5-16.0 G/DL Hematocrit 29 L 35-52 % LLE--incision clean and dry. No calf tenderness. Neg Shea's s/p LTKA progressing well continue PT/OT DC LIMOUSINE RENTAL CLERK likely DC tomorrow JACQUELINE PALACIO MD May 14, 2018 07:06
[2018-05-14 07:09] LABS: ALANINE AMINOTRANSFERASE 36 U/L (0-55); ALBUMIN 3.7 GM/DL (3.2-4.5); ALKALINE PHOSPHATASE 106 U/L (40-136); BUN/CREATININE RATIO 15; CALCIUM 8.8 MG/DL (8.5-10.1); CARBON DIOXIDE 24 MMOL/L (21-32); CHLORIDE 99 MMOL/L (98-107); CREATININE SERUM 0.78 MG/DL (0.60-1.30); GFR ESTIMATED > 60; GLUCOSE 242 MG/DL (70-105); POTASSIUM 4.1 MMOL/L (3.6-5.0); SODIUM 131 MMOL/L (135-145); TOTAL PROTEIN 7.1 GM/DL (6.4-8.2)
[2018-05-14] MEDS ORDERED: morphine INJ 4 MG/ML 1 ML (VIAL/SYRINGE) IVP PRN (07:15)
[2018-05-14 08:00] VITALS: BP 133/64
--- NOTE | 2018-05-14 09:07 | Occ Therapy Progress Note ---
Therapy Progress Note 900 Attempted to see patient but she said that she was on the CPM and requested OT to come back later. ROSE ANNE OT May 14, 2018 09:07
[2018-05-14] MEDS: CARVEDILOL 12.5 MG (COREG) TABLET PO SCH ×2 (09:19→23:03)
[2018-05-14] MEDS: SENNA W/DOCUSATE (SENOKOT S) TABLET PO SCH ×2 (09:20→22:59)
[2018-05-14] MEDS: ENOXAPARIN 30 MG/0.3 ML (LOVENOX) SYR SC SCH ×2 (09:20→22:58)
[2018-05-14] MEDS: ASPIRIN E.C. 81 MG (ECOTRIN) TAB PO SCH (09:20)
[2018-05-14] MEDS: SPIRONOLACTONE 25 MG (ALDACTONE) TAB PO SCH ×2 (09:20→22:59)
[2018-05-14] MEDS: FLUoxetine HCL 20 MG (PROzac) CAP PO SCH (09:26)
--- NOTE | 2018-05-14 09:32 | Physical Therapy Daily Note ---
PT Daily Note-Current Subjective Patient agrees to PT. Pain Numeric Pain Scale: 8 Location: Left Location Body Site: Knee Pain Description: Acute Mental Status Patient Orientation: Normal For Age Transfers Functional [place] Measure 0=Not Assessed/NA 4=Minimal Assistance 1=Total Assistance 5=Supervision or Setup 2=Maximal Assistance 6=Modified [place] 3=Moderate Assistance 7=Complete IndependenceIRFPAI Quality Coding Scale 6 Independent with activity with or without an assistive device 5 Patient requires set up or clean up by helper. Patient completes activity by themselves 4 Supervision or touching assist (CGA). [place] provide cues , steadying assist 3 The helper provides less than half the effort to complete the activity 2 The helper provides more than half the effort to complete the activity 1 Dependent. The helper does all the effort to complete an activity 7 Patient refused to complete or attempt activity 9 The patient did not perform the activity before the current illness or injury 88 Not attempted due to Medical conditions or safety concerns Transfers (B, C, W/C) (FIM): 6 Scootin Rollin Supine to/from Sit: 6 Sit to/from Stand: 6 Weight Bearing Right Lower Extremity: Right Full Weight Bearing Left Lower Extremity: Left Gait Training Gait (FIM): 6 Distance (FIM): 3=150 ft Distance: 250' x 2 Gait Level of Assist: 6 Gait Assistive Device: FWW slow, antalgic, functional (skilled verbal instruction for heel toe gait with knee flexion ) Stair Training Stair Training: Handrails/: 2 handrails Stairs (FIM): 2 #of Steps: 4 Stairs: Pattern: Step to Level of Assist: 5 Exercises Supine Ex: Ankle pumps, Quad Set, Heel Slides, Straight leg raise Supine Reps: 15 Seated Therapy Exercises: Long arc quads Seated Reps: 25 Treatments CPM 0-80 degrees with polar pack in place. Assessment Patient progressing with treatment plan and will dismiss to home tomorrow with spouse. PT Usp Goals Usp Goals PT Mechanical Cad Designer Goals Time Frame: May 17, 2018 Transfers (B,C,W/C) (FIM): 6 Gait (FIM): 6 Gait distance (FIM): 3=150 ft Gait Assistive Device: FWW Stairs (FIM): 5 # of Steps: 4 PT Plan Treatment/Plan Treatment Plan: Continue Plan of Care Treatment Plan: Bed Mobility, Education, Functional Activity [place], Functional Strength, Gait, Safety, Therapeutic Exercise, Transfers Treatment Duration: May 17, 2018 Frequency: 11 times per week Estimated Hrs Per Day: .5 hour per day Patient and/or Family Agrees t: Yes Time/GCodes Time In: 830 Time Out: 856 Total Billed Treatment Time: 26 Total Billed Treatment 1 visit EX 15 min FA 11 min TRINO ALFARO PT May 14, 2018 09:32
[2018-05-14] MEDS: clonazePAM 0.5 MG (KlonoPIN) TAB PO PRN ×2 (10:28→22:59)
--- NOTE | 2018-05-14 13:43 | Physical Therapy Daily Note ---
PT Daily Note-Current Subjective Patient is up in hallway ambulating this p.m. with spouse. Patient reports inability to tolerate CPM due to pain. Education with patient and spouse on importance of actively improving left knee ROM with exercises. Both voice understanding. Pain Numeric Pain Scale: 8 Location: Left Location Body Site: Knee Pain Description: Acute Mental Status Patient Orientation: Normal For Age Transfers Functional [place] Measure 0=Not Assessed/NA 4=Minimal Assistance 1=Total Assistance 5=Supervision or Setup 2=Maximal Assistance 6=Modified [place] 3=Moderate Assistance 7=Complete IndependenceIRFPAI Quality Coding Scale 6 Independent with activity with or without an assistive device 5 Patient requires set up or clean up by helper. Patient completes activity by themselves 4 Supervision or touching assist (CGA). [place] provide cues , steadying assist 3 The helper provides less than half the effort to complete the activity 2 The helper provides more than half the effort to complete the activity 1 Dependent. The helper does all the effort to complete an activity 7 Patient refused to complete or attempt activity 9 The patient did not perform the activity before the current illness or injury 88 Not attempted due to Medical conditions or safety concerns Weight Bearing Right Lower Extremity: Right Full Weight Bearing Left Lower Extremity: Left Exercises Supine Ex: Ankle pumps, Quad Set, Heel Slides, Straight leg raise Supine Reps: 25 Seated Therapy Exercises: Long arc quads Seated Reps: 25 Assessment Patient tolerated treatment well and will dismiss to home tomorrow. Patient is progressing and is compliant with HEP. PT Retirement Goals Retirement Goals PT Drilling Machine Runner Goals Time Frame: May 17, 2018 Transfers (B,C,W/C) (FIM): 6 Gait (FIM): 6 Gait distance (FIM): 3=150 ft Gait Assistive Device: FWW Stairs (FIM): 5 # of Steps: 4 PT Plan Treatment/Plan Treatment Plan: Continue Plan of Care Treatment Plan: Bed Mobility, Education, Functional Activity [place], Functional Strength, Gait, Safety, Therapeutic Exercise, Transfers Treatment Duration: May 17, 2018 Frequency: 11 times per week Estimated Hrs Per Day: .5 hour per day Patient and/or Family Agrees t: Yes Time/GCodes Time In: 1316 Time Out: 1331 Total Billed Treatment Time: 15 Total Billed Treatment 1 visit EX 15 min TRINO ALFARO PT May 14, 2018 13:42
[2018-05-14 15:33] VITALS: BP 142/65
--- NOTE | 2018-05-14 17:18 | Progress Note (SOAP) ---
Subjective Subjective/Events-last exam Patient doing well this AM. States that she is still having pain in her left leg but it is controlled enough to participate in PT. Tolerating PO diet. + BM last night. Review of Systems Date Seen by Provider: May 14, 2018 Time Seen by Provider: 07:35 Pulmonary: No Dyspnea, No Cough Cardiovascular: No: Chest Pain, Palpitations, Edema Gastrointestinal: No: Nausea, Vomiting, Abdominal Pain, Diarrhea, Constipation Musculoskeletal: leg pain Objective Exam Last Set of Vital Signs Vital Signs Date Time Temp Pulse Resp B/P (MAP) Pulse Ox O2 Delivery O2 Flow Rate FiO2 05/14/18 15:33 98.4 74 20 142/65 (90) 96 Room Air 05/13/18 04:13 3.00 Capillary Refill : Less Than 3 Seconds I&O Intake and Output 05/14/18 00:00 Intake Total 3720 ml Output Total 1750 ml Balance 1970 ml Intake Oral 2670 ml IV Total 1050 ml Output Urine Total 1750 ml # Bowel Movements 1 General: Alert, Oriented X3, Cooperative, No Acute Distress Lungs: Clear to Auscultation, Normal Air Movement Heart: Regular Rate, No Murmurs Extremities: Other (compression stockings in place) Psych/Mental Status: Mental Status NL, Mood NL Results/Procedures Lab Laboratory Tests 05/13/18 20:53: Glucometer 291H 05/14/18 05:31: Glucometer 251H 05/14/18 06:01: Hemoglobin 9.8L, Hematocrit 29L, Sodium Level 131L, Potassium Level 4.1, Chloride Level 99, Carbon Dioxide Level 24, Anion Gap 8, Blood Urea Nitrogen 12 , Creatinine 0.78, Estimat Glomerular Filtration Rate > 60, BUN/Creatinine Ratio 15, Glucose Level 242H, Calcium Level 8.8, Total Bilirubin 1.0, Aspartate Amino Transf (AST/SGOT) 33, Alanine Aminotransferase (ALT/SGPT) 36, Alkaline Phosphatase 106, Total Protein 7.1, Albumin 3.7 05/14/18 11:06: Glucometer 356H 05/14/18 15:54: Glucometer 228H Assessment/Plan Assessment/Plan (1) Osteoarthritis of left knee Status: Chronic Assessment & Plan: POD #12 s/p Left total knee with Dr Carroll - Pain control per surgical team, Plan for home on Thursday with 05/14: Patient transitioned to PO pain meds Qualifiers: Qualified Codes: M17.12 - Unilateral primary osteoarthritis, left knee (2) Insulin dependent diabetes mellitus Status: Chronic Assessment & Plan: - Will restart 60% of insulin, SSI with accuchecks QID, A1c pending 05/14: A1c 10.3, increased levemir to 20 units qhs, will restart byduren at discharge, continue to monitor blood sugars (3) HTN (hypertension) Status: Chronic Assessment & Plan: - Restart home meds Qualifiers: Qualified Codes: I10 - Essential (primary) hypertension (4) HLD (hyperlipidemia) Status: Chronic Assessment & Plan: - Restart home statin Qualifiers: Qualified Codes: E78.2 - Mixed hyperlipidemia Clinical Quality Measures DVT/VTE Risk/Contraindication: Risk Factor Score Per Nursin RFS Level Per Nursing on Admit: 4+=Very High ROXY SUH MD May 14, 2018 17:17
[2018-05-14] MEDS ORDERED: inSUlin DETERMIR 1 UNIT/0.01 ML (LEVEMIR) CHARGE PER UNIT SQ SCH (21:00)
[2018-05-14] MEDS: ROSUVASTATIN 20 MG (CRESTOR) TABLET PO SCH (22:58)
[2018-05-15 00:20] VITALS: BP 167/77
[2018-05-15] MEDS: MULTIVIT W/MINERALS TAB (THERAGRAN M) PO SCH (05:43)
[2018-05-15] MEDS: oxyCODONE/APAP 5/325MG (PERCOCET 5) TABLET PO PRN (05:44)
[2018-05-15] MEDS: clonazePAM 0.5 MG (KlonoPIN) TAB PO PRN (05:44)
[2018-05-15] MEDS: PANTOPRAZOLE 20 MG TABLET (PROTONIX) PO SCH (05:44)
[2018-05-15 06:24] LABS: BASOPHILS # (AUTO) 0.1 10^3/uL (0.0-0.1); BASOPHILS % (AUTO) 0 % (0-10); EOSINOPHILS # (AUTO) 0.1 10^3/uL (0.0-0.3); EOSINOPHILS % (AUTO) 0 % (0-10); HEMATOCRIT 26 % (35-52); HEMOGLOBIN 8.9 G/DL (11.5-16.0); LYMPHOCYTES # (AUTO) 3.8 X 10^3 (1.0-4.0); LYMPHOCYTES % (AUTO) 30 % (12-44); MEAN CORPUSCULAR HEMOGLOBIN 30 PG (25-34); MEAN CORPUSCULAR HGB CONC 34 G/DL (32-36); MEAN CORPUSCULAR VOLUME 89 FL (80-99); MEAN PLATELET VOLUME 10.9 FL (7.4-10.4); MONOCYTES # (AUTO) 0.9 X 10^3 (0.0-1.0); MONOCYTES % (AUTO) 8 % (0-12); NEUTROPHILS # (AUTO) 7.6 X 10^3 (1.8-7.8); NEUTROPHILS % (AUTO) 61 % (42-75); PLATELET COUNT 295 10^3/uL (130-400); RED BLOOD COUNT 2.93 10^6/uL (4.35-5.85); RED CELL DISTRIBUTION WIDTH 13.9 % (10.0-14.5); WHITE BLOOD COUNT 12.4 10^3/uL (4.3-11.0)
[2018-05-15] MEDS: inSUlin ASPART (NovoLOG) 1 UNIT/0.01 ML (CHARGE PER UNIT) SC SCH (06:29)
[2018-05-15 06:32] LABS: BUN/CREATININE RATIO 15; CALCIUM 9.5 MG/DL (8.5-10.1); CARBON DIOXIDE 25 MMOL/L (21-32); CHLORIDE 100 MMOL/L (98-107); CREATININE SERUM 0.73 MG/DL (0.60-1.30); GFR ESTIMATED > 60; GLUCOSE 221 MG/DL (70-105); SODIUM 133 MMOL/L (135-145)
[2018-05-15 08:00] VITALS: BP 155/70
[2018-05-15] MEDS: FLUoxetine HCL 20 MG (PROzac) CAP PO SCH (08:04)
[2018-05-15] MEDS: ENOXAPARIN 30 MG/0.3 ML (LOVENOX) SYR SC SCH (08:04)
[2018-05-15] MEDS: SPIRONOLACTONE 25 MG (ALDACTONE) TAB PO SCH (08:04)
[2018-05-15] MEDS: CARVEDILOL 12.5 MG (COREG) TABLET PO SCH (08:05)
[2018-05-15] MEDS: ASPIRIN E.C. 81 MG (ECOTRIN) TAB PO SCH (08:05)
[2018-05-15] MEDS: SENNA W/DOCUSATE (SENOKOT S) TABLET PO SCH (08:05)
--- NOTE | 2018-05-15 09:29 | Progress Note-Standard ---
Standard Progress Note Progress Notes/Assess & Plan Date Seen by Provider: May 15, 2018 Time Seen by Provider: 09:28 Progress/Assessment & Plan no complaints LLE--2 plus DP pulse with brisk cap refill. Intact sensation throughout. Intact DF and PF of toes and ankle s/p LTKA mobilize as able Final Diagnosis No complaints Vital Signs Date Time Temp Pulse Resp B/P (MAP) Pulse Ox O2 Delivery O2 Flow Rate FiO2 05/15/18 08:00 97.0 78 20 155/70 (98) 93 Room Air 05/15/18 00:20 98.2 78 19 167/77 (107) 98 Room Air 05/14/18 20:00 Room Air 05/14/18 19:27 92 Room Air 05/14/18 15:33 98.4 74 20 142/65 (90) 96 Room Air 05/14/18 10:00 20 I & O 05/15/18 07:00 Intake Total 2942 ml Output Total 1200 ml Balance 1742 ml Laboratory Tests Test 05/14/18 11:06 05/14/18 15:54 05/14/18 22:39 05/15/18 05:11 Range/Units Glucometer 356 H 228 H 227 H 192 H 70-110 MG/DL Test 05/15/18 05:55 Range/Units White Blood Count 12.4 H 4.3-11.0 10^3/uL Red Blood Count 2.93 L 4.35-5.85 10^6/uL Hemoglobin 8.9 L 11.5-16.0 G/DL Hematocrit 26 L 35-52 % Mean Corpuscular Volume 89 80-99 FL Mean Corpuscular Hemoglobin 30 25-34 PG Mean Corpuscular Hemoglobin Concent 34 32-36 G/DL Red Cell Distribution Width 13.9 10.0-14.5 % Platelet Count 295 130-400 10^3/uL Mean Platelet Volume 10.9 H 7.4-10.4 FL Neutrophils (%) (Auto) 61 42-75 % Lymphocytes (%) (Auto) 30 12-44 % Monocytes (%) (Auto) 8 0-12 % Eosinophils (%) (Auto) 0 0-10 % Basophils (%) (Auto) 0 0-10 % Neutrophils # (Auto) 7.6 1.8-7.8 X 10^3 Lymphocytes # (Auto) 3.8 1.0-4.0 X 10^3 Monocytes # (Auto) 0.9 0.0-1.0 X 10^3 Eosinophils # (Auto) 0.1 0.0-0.3 10^3/uL Basophils # (Auto) 0.1 0.0-0.1 10^3/uL Sodium Level 133 L 135-145 MMOL/L Potassium Level 4.0 3.6-5.0 MMOL/L Chloride Level 100 98-107 MMOL/L Carbon Dioxide Level 25 21-32 MMOL/L Anion Gap 8 5-14 MMOL/L Blood Urea Nitrogen 11 7-18 MG/DL Creatinine 0.73 0.60-1.30 MG/DL Estimat Glomerular Filtration Rate > 60 BUN/Creatinine Ratio 15 Glucose Level 221 H 70-105 MG/DL Calcium Level 9.5 8.5-10.1 MG/DL LLE--dressing intact. No calf tenderness. Neg Anita's. Improved quad control s/p LTKA doing well DC home JACQUELINE PALACIO MD May 15, 2018 09:29
[2018-05-15 09:40] VITALS: BP 155/70
--- NOTE | 2018-05-15 09:54 | Physical Therapy Daily Note ---
PT Daily Note-Current Subjective Patient sitting EOB pre tx, agrees to PT, has 8/10 pain in her knee. Patient is actually discharging from hospital but she agrees to ambulate with PT to her car and perform a car transfer. Appearance Patient in car with post tx. She has her own rolling walker in the car. Mental Status Patient Orientation: Normal For Age Transfers Functional [place] Measure 0=Not Assessed/NA 4=Minimal Assistance 1=Total Assistance 5=Supervision or Setup 2=Maximal Assistance 6=Modified [place] 3=Moderate Assistance 7=Complete IndependenceIRFPAI Quality Coding Scale 6 Independent with activity with or without an assistive device 5 Patient requires set up or clean up by helper. Patient completes activity by themselves 4 Supervision or touching assist (CGA). [place] provide cues , steadying assist 3 The helper provides less than half the effort to complete the activity 2 The helper provides more than half the effort to complete the activity 1 Dependent. The helper does all the effort to complete an activity 7 Patient refused to complete or attempt activity 9 The patient did not perform the activity before the current illness or injury 88 Not attempted due to Medical conditions or safety concerns Transfers (B, C, W/C) (FIM): 6 Sit to/from Stand: 6 Bed to/from Chair: 6 Patient performed a car transfer with SBA, cues for head clearance and positioning. Weight Bearing Right Lower Extremity: Right Full Weight Bearing Left Lower Extremity: Left Gait Training Gait (FIM): 6 Distance: 500' Gait Assistive Device: FWW slow ambulation, decreased knee flexion on the left Treatments car transfers, ambulation Assessment Current Status: Fair Progress improving ambulation PT Cds Sales Advisor Goals Shelter Goals PT Shelter Goals Time Frame: May 17, 2018 Transfers (B,C,W/C) (FIM): 6 Gait (FIM): 6 Gait distance (FIM): 3=150 ft Gait Assistive Device: FWW Stairs (FIM): 5 # of Steps: 4 PT Plan Problem List Problem List: Activity Tolerance, Functional Strength, Safety, Balance, Gait, Transfer Treatment/Plan Treatment Plan: Discontinue PT Treatment Plan: Bed Mobility, Education, Functional Activity [place], Functional Strength, Gait, Safety, Therapeutic Exercise, Transfers Treatment Duration: May 17, 2018 Frequency: 11 times per week Estimated Hrs Per Day: .5 hour per day Patient and/or Family Agrees t: Yes Safety Risks/Education Patient Education: Gait Training, Transfer Techniques, Correct Positioning, Safety Issues Teaching Recipient: Patient Teaching Methods: Demonstration, Discussion Response to Teaching: Reinforcement Needed Time/GCodes Time In: 35 Time Out: 50 Total Billed Treatment Time: 15 Total Billed Treatment 1 visit GT 15' PATIENCE YOUSIF PT May 15, 2018 09:54
--- NOTE | 2018-05-15 10:04 | DISCHARGE SUMMARY ---
DATE OF SERVICE: DISCHARGE DIAGNOSES: 1. Left knee primary osteoarthritis. 2. Depression. 3. Diabetes mellitus. 4. Hypertension. 5. Peptic ulcer disease. 6. Irritable bowel syndrome. 7. Hyperlipidemia. PROCEDURE: Left total knee arthroplasty. SUMMARY: The patient is a 63-year-old female who underwent a left total knee arthroplasty on the day of admission. Postoperatively, she did very well. At the time of discharge, her wound was clean and dry. She had no calf tenderness. Negative Homans sign. She has obtained independent status with physical therapy. She was tolerating her diet well and tolerating the pain with oral pain medication. CONDITION AT DISCHARGE: Good. DISCHARGE DIET: Regular. FOLLOWUP: Followup is in three weeks. Home physical therapy has been arranged. ACTIVITIES: Activities are weightbearing as tolerated with walker. DISCHARGE MEDICATIONS: Home medications, Percocet as needed for pain and aspirin one every day. Job ID: [id number] DocumentID: [id number] Dictated Date: 05/15/2018 09:34:58 Spool Cleaner Hand Date: 05/15/2018 10:03:55 Dictated By: JACQUELINE PALACIO MD
== END 2018-05-15 09:40 | disposition home health service (06) | DRG 470 ==
LOC: 4TH 07:24 → SURG 07:25 → 4TH 12:29
PROVIDERS: ADMIT Orthopaedic Surgery; ATTEND Orthopaedic Surgery
PROC: 0SRD0J9 Replacement of Left Knee Joint with Synthetic Substitute, Cemented, Open Approach (ICD-10-PCS; principal; 2018-05-12 09:56)
DX: M17.12 Unilateral primary osteoarthritis, left knee (principal); E66.01 Morbid (severe) obesity due to excess calories; Z68.41 Body mass index [BMI] 40.0-44.9, adult; E11.9 Type 2 diabetes mellitus without complications; I10 Essential (primary) hypertension; E78.5 Hyperlipidemia, unspecified; F32.9 Major depressive disorder, single episode, unspecified; K58.9 Irritable bowel syndrome, unspecified; G47.00 Insomnia, unspecified; Z79.82 Long term (current) use of aspirin; Z79.4 Long term (current) use of insulin
CPT/HCPCS: 36415; 73560; 80048; 80053; 82962; 83036; 85014; 85018; 85025; 86850; 86900; 86901; 94664; 94760

== ENCOUNTER → 2018-08-31 | Outpatient (CLI) | payer MEDICARE ==
[~2018-08-31] MED LIST changes: +METF-399 PO; -METF10002 PO; +OXYC1TAB87 PO
--- NOTE | 2018-08-31 19:09 | Diagnostic Imaging Report ---
INDICATION: Routine screening. Comparison is made with prior mammograms from 08/11/2016 and 06/20/2014. 2-D and 3-D bilateral screening mammography was performed with computer-aided detection (CAD) system. FINDINGS: Both breasts are heterogeneously dense, limiting the sensitivity of mammography. Right breast does contain benign calcifications. It is otherwise unremarkable. The nodular density in the medial retroareolar location of the left breast is again seen and previously described. Additional views were recommended; however, reportedly this was not performed. This is going to be re-recommended today. There is also an area of slightly more ill-defined density posterior and slightly more medial to this density on the CC view. Additional views of this region are recommended as well. This should include spot compression and rolled CC views. There is a central density noted on the left MLO view. Spot compression views of this area are recommended as well. No suspicious calcifications are seen. IMPRESSION: Left breast densities. Additional views are recommended. ACR BI-RADS Category 0: Incomplete. (Needs additional imaging evaluation). Result letter will be mailed to the patient. Note: At least 10% of breast cancer is not imaged by mammography. Dictated by: Dictated on workstation # [id number]
== END ==
LOC: RAD 09:33
PROVIDERS: ATTEND Nurse Practitioner Community Health
DX: Z12.31 Encounter for screening mammogram for malignant neoplasm of breast (principal); R92.8 Other abnormal and inconclusive findings on diagnostic imaging of breast
CPT/HCPCS: 77067

== ENCOUNTER → 2019-01-19 | Outpatient (CLI) | payer MEDICARE ==
--- NOTE | 2019-01-19 19:01 | Diagnostic Imaging Report ---
INDICATION: Left breast densities. Patient presents for additional views. COMPARISON: Correlation is made with recent screening study from 08/31/2018. TECHNIQUE: Unilateral left 2D and 3D diagnostic mammography was performed. Additional views included a repeat CC view as well as 90 degree lateral view. Rolled CC as well as spot compression CC and mL views were performed. The current study was also evaluated with a Computer Aided Detection (CAD) system. FINDINGS: Densities noted in the medial aspect of the left breast appear much less prominent on the repeat CC view. Additional views fail to demonstrate a discrete mass. Areas of density most likely represented superimposed tissue. No suspicious calcifications are seen. IMPRESSION: Additional views fail to demonstrate a discrete mass. The patient may return to routine annual screening mammography. ACR BI-RADS Category 1: Negative. Result letter will be mailed to the patient. Note: At least 10% of breast cancer is not imaged by mammography. Dictated by: Dictated on workstation # [id number]
== END ==
LOC: RAD 12:38
PROVIDERS: ATTEND Nurse Practitioner Community Health
DX: R92.2 Inconclusive mammogram (principal)

== ENCOUNTER 2019-08-02 15:40 | Outpatient (CLI) | payer MEDICARE ==
[~2019-08-02] VITALS: Ht 152 cm; Wt 89.5 kg
[~2019-08-02 15:40] MED LIST changes: -ROSU20TA31 PO; +ROSU20TA32 PO; -TRAZ-189 PO; +TRAZ-222 PO
[2019-08-02] MEDS ORDERED: EMPA10TA PO (15:49)
[2019-08-02] MEDS ORDERED: MULT1CAP27 PO (15:49)
[2019-08-02] MEDS ORDERED: EXEN2PEN SQ (15:49)
== END 2019-08-02 15:55 | disposition home or self-care (01) ==
LOC: PREOP 15:40
PROVIDERS: ATTEND Surgery
DX: Z01.818 Encounter for other preprocedural examination (principal)

== ENCOUNTER 2019-08-08 07:42 | Day surgery (SDC) | payer MEDICARE ==
[~2019-08-08] VITALS: Ht 152 cm; Wt 89.5 kg
[2019-08-08] VITALS (7 sets, daily range): BP systolic 110–136; BP diastolic 60–78
[~2019-08-08 07:42] MED LIST changes: +EMPA10TA PO; +EXEN2PEN SQ; +MULT1CAP27 PO
[2019-08-08] MEDS ORDERED: LACTATED RINGERS 1,000 ML IV PRN (08:00)
[2019-08-08] MEDS ORDERED: LACTATED RINGERS 1,000 ML IV ONE (08:03)
--- NOTE | 2019-08-08 08:08 | Progress Note-Pre Operative ---
Pre-Operative Progress Note H&P Reviewed The H&P was reviewed, patient examined and no changes noted. Time Seen by Provider: 08:01 Date H&P Reviewed: Aug 08, 2019 Time H&P Reviewed: 08:02 Pre-Operative Diagnosis: + colDOV Costa DO Aug 08, 2019 08:08
[2019-08-08] MEDS ORDERED: proPOfol 200 MG/20 ML (DIPRIVAN) VIAL IV ONE (08:55)
[2019-08-08] MEDS ORDERED: MIDAZOLAM 2 MG/2 ML (VERSED) VIAL ONE (09:06)
--- NOTE | 2019-08-08 09:26 | Progress Note-Post Operative ---
Post-Operative Progess Note Surgeon (s)/Crm Coordinator (s) Surgeon DOV MCKNIGHT DO Crm Coordinator: ZITA Gray Pre-Operative Diagnosis + cologuard Post-Operative Diagnosis diverticula internal hemorrhoids Procedure & Operative Findings Date of Procedure 08/08/19 Procedure Performed/Findings colonoscopy Anesthesia Type IV sedation by COOK HELPER PASTRY Estimated Blood Loss Estimated blood loss (mL): none Specimens/Packing Specimens Removed none DOV MCKNIGHT DO Aug 08, 2019 09:26
--- NOTE | 2019-08-08 09:28 | Endoscopy Discharge Instruct ---
Endo Procedure/Findings Findings 1.: Diverticulosis 2.: Internal Hemorrhoids Discharge Instructions - Activity: You might feel a little sleepy until tomorrow. This is due to the medicine you received to relax you. Until tomorrow, you should: NOT drive a car, operate machinery or power tools. NOT drink any alcoholic beverages. NOT make any important decisions or sign importortant papers. Do not return to work until tomorrow, unless otherwise instructed. Resume previous activities tomorrow. Diet: Start by taking liquids. If you tolerate liquids, advance to solid food. make an appointment for one week 1.: Colonscopy in 10 years Notify Physician - If you experience excessive bleeding, unusual abdominal pain, fever, or chest pain, contact your doctor immediately. DOV MCKNIGHT DO Aug 08, 2019 09:28
--- NOTE | 2019-08-08 14:14 | OPERATIVE REPORT ---
DATE OF SERVICE: 08/08/2019 PREOPERATIVE DIAGNOSIS: Positive Cologuard. POSTOPERATIVE DIAGNOSES: Diverticula, internal hemorrhoids. PROCEDURE PERFORMED: Colonoscopy. SURGEON: Crispin Walters DO. PUMP SERVICER HELPER: RADHA Gray. ANESTHESIA: MS3. SPECIMENS: None. BLOOD LOSS: None. FLUIDS: Per anesthesia. POSTOPERATIVE CONDITION: Stable. INDICATION FOR PROCEDURE: The patient is a 64-year-old female who had a positive Cologuard test and needed a colonoscopy. FINDINGS: The patient had some diverticula and internal hemorrhoids. No other obvious pathology. PROCEDURE NOTE: After informed consent was obtained, the patient was brought to the endoscopy suite and placed in the left lateral decubitus position. She was administered IV sedation by the CONVENTION WORKER who then monitored her vitals the entire time, heart rate, blood pressure and pulse ox and the scope was inserted, pushed all the way into about [address] in, noted some diverticula, took a picture. Once in the cecum, took a picture of appendiceal orifice and able to get into the terminal ileum and took a picture and then slowly withdrew the scope insufflating to look circumferentially at the abernathy looking at the cecum up the ascending colon to the hepatic flexure, down the transverse colon to the splenic flexure, then into the descending colon, finally into the sigmoid colon and down in the rectum, retroflexed the rectal vault, saw some internal hemorrhoids, took a picture and then removed the scope. The patient tolerated the procedure, recovered in endoscopy suite. Job ID: [id number] DocumentID: [id number] Dictated Date: 08/08/2019 09:18:45 Director Of Labor Relations Date: 08/08/2019 14:14:28 Dictated By: CRISPIN WALTERS DO
--- NOTE | 2019-08-08 14:30 | Anesthesia-General Post-Op ---
MAC Patient Condition Mental Status/LOC: Same as Preop Cardiovascular: Satisfactory Nausea/Vomiting: Absent Respiratory: Satisfactory Pain: Controlled Complications: Absent Post Op Complications Complications None Follow Up Care/Instructions Patient Instructions None needed. Anesthesiology Discharge Order Discharge Order Patient is doing well, no complaints, stable vital signs, no apparent adverse anesthesia problems. No complications reported per nursing. BEN CAIN CRNA Aug 08, 2019 14:30
== END 2019-08-08 10:10 ==
LOC: ENDO 07:42
PROVIDERS: ATTEND Surgery
DX: K64.8 Other hemorrhoids (principal); K57.30 Diverticulosis of large intestine without perforation or abscess without bleeding; E78.5 Hyperlipidemia, unspecified; E11.9 Type 2 diabetes mellitus without complications; K21.9 Gastro-esophageal reflux disease without esophagitis; J45.909 Unspecified asthma, uncomplicated; F32.9 Major depressive disorder, single episode, unspecified; Z88.1 Allergy status to other antibiotic agents; Z88.8 Allergy status to other drugs, medicaments and biological substances; Z91.048 Other nonmedicinal substance allergy status; Z88.4 Allergy status to anesthetic agent; Z79.899 Other long term (current) drug therapy; Z98.51 Tubal ligation status; Z90.89 Acquired absence of other organs; I10 Essential (primary) hypertension; Z90.49 Acquired absence of other specified parts of digestive tract; Z90.710 Acquired absence of both cervix and uterus; Z86.73 Personal history of transient ischemic attack (TIA), and cerebral infarction without residual deficits; Z79.82 Long term (current) use of aspirin; Z79.84 Long term (current) use of oral hypoglycemic drugs; Z80.9 Family history of malignant neoplasm, unspecified; Z82.49 Family history of ischemic heart disease and other diseases of the circulatory system
CPT/HCPCS: 82962